=== PATIENT | female | born 1955 | race Caucasian/White ===

== ENCOUNTER 2020-02-06 08:17 | Outpatient (CLI) | payer BC, SELFPAY ==
--- NOTE | ~2020-02-06 | MM_ITS ---
EXAMINATION: MM scrn unique implant BI w robe HISTORY: Screening mammogram TECHNIQUE: Craniocaudal and mediolateral oblique 3-D tomosynthesis images with implant displacement a nd synthetic 2-D images were generated. Craniocaudal and mediolateral oblique views of the breasts wi thout implant displacement were obtained using full field digital mammography. CAD analysis was submi tted and interpreted. COMPARISON: 09/30/2018, 09/28/2017, 09/15/2016 BREAST PARENCHYMAL COMPOSITION: The breasts are almost entirely fatty. FINDINGS: Scattered benign-appearing calcifications are present. There is no evidence of suspicious m ass, calcification, or architectural distortion to suggest malignancy in either breast. There has bee n no suspicious interval change. IMPRESSION: 1. No mammographic evidence of malignancy. 2. Recommend routine screening mammography in one year. BI-RADS Category 2: Benign finding(s). Reviewed, dictated and finalized at location A.
== END 2020-02-06 08:18 | disposition home or self-care (01) ==
LOC: ANHIMG 08:20
PROVIDERS: PCP Family Medicine; Visit Provider Student in an Organized Health Care Education/Training Program
DX: Z12.31 Encounter for screening mammogram for malignant neoplasm of breast (principal)
CPT/HCPCS: 77063; 77067

== ENCOUNTER 2021-02-18 09:45 | Outpatient (CLI) | payer MEDICARE, SELFPAY ==
--- NOTE | ~2021-02-18 | DEXA_ITS ---
Bone Density Report Name: Angelica Arevalo Age: 65 Sex: Female Ethnicity: White Date of : 1955 Indication: postmenopausal; parental hip fracture; height loss; Referring Provider: Lucy Mora Study: Bone densitometry was performed. Exam Date: February 18, 2021 Accession number: [id number] Bone Density: Region BMD T-score Z-score Classification AP Spine (L1-L4) 0.945 -0.9 0.9 Normal Femoral Neck (Left) 0.786 -0.6 1.0 Normal Total Hip (Left) 0.904 -0.3 0.9 Normal Total Hip Bilateral Avg 0.936 -0.1 1.2 Normal Femoral Neck (Right) 0.786 -0.6 1.0 Normal Total Hip (Right) 0.967 0.2 1.5 Normal World Health Organization criteria for BMD impression classify patients as: Normal (T-score at or above -1.0), Osteopenia (T-score between -1.0 and -2.5), or Osteoporosis (T-score at or below -2.5). 10-year Fracture Risk: FRAX not reported because: All T-scores for Spine Total, Hip Total, Femoral Neck at or above -1.0 Previous Exams: Region Exam Age BMD T-score BMD Change BMD Change Date g/cm2 vs Baseline vs Previous AP Spine(L1-L4) 02/18/2021 65 0.945 -0.9 0.013(1.4%) 0.013(1.4%) 09/28/2017 62 0.932 -1.0 Total Hip(Left) 02/18/2021 65 0.904 -0.3 -0.078(-7.9%)* -0.078(-7.9%)* 09/28/2017 62 0.982 0.3 Total Hip(Right) 02/18/2021 65 0.967 0.2 -0.055(-5.4%)* -0.055(-5.4%)* 09/28/2017 62 1.022 0.7 *Denotes significance at 95% confidence level, LSC for AP Spine = 0.022 g/cm2, LSC for Total Hip = 0.027 g/cm2 Clinical Information Provided by Patient: Parent has had a hip fracture Has used the following medications: Fosamax (i.e. alendronate), Calcium Patient maximum height was 65 Menopause Age: 60 Drinks caffeinated beverages Onset of menses at age 13 Number of children 2 Impression: The patient has normal bone mass. The patient has risk factors, including: parental hip fracture. The BMD for the Total Hip(Left) decreased, changing by -7.9% since the last DXA exam. The BMD for the Total Hip(Right) decreased, changing by -5.4% since the last DXA exam. Discussion: BONE DENSITY IS ABOVE THE MINIMUM DESIRABLE LEVEL AT ALL SKELETAL SITES TESTED. This patient?s bone mineral density is above the minimum desirable level (T-score -1.0 or better) at all sites measured. The patient should follow a healthful lifestyle (good nutrition with adequate calcium and vitamin D, and appropriate weight-bearing exercise). Follow-Up: Consider repeating
--- NOTE | ~2021-02-18 | MM_ITS ---
EXAMINATION: MM scrn unique implant BI w robe HISTORY: Screening mammogram TECHNIQUE: Craniocaudal and mediolateral oblique 3-D tomosynthesis images with implant displacement a nd synthetic 2-D images were generated. Craniocaudal and mediolateral oblique views of the breasts wi thout implant displacement were obtained using full field digital mammography. CAD analysis was submi tted and interpreted. COMPARISON: 02/06/2020, 09/30/2018, 09/28/2017 bilateral implant digital screening mammogram examination s BREAST PARENCHYMAL COMPOSITION: There are scattered areas of fibroglandular density. FINDINGS: Status post bilateral augmentation mammoplasty. There is no evidence of suspicious mass, ca lcification, or architectural distortion to suggest malignancy in either breast. There has been no wilkins spicious interval change. IMPRESSION: 1. No mammographic evidence of malignancy. 2. Recommend routine screening mammography in one year. BI-RADS Category 1: Negative Reviewed, dictated and finalized at location A.
== END 2021-02-18 09:46 | disposition home or self-care (01) ==
LOC: ANHIMG 09:47
PROVIDERS: PCP Family Medicine; Visit Provider Student in an Organized Health Care Education/Training Program
DX: Z12.31 Encounter for screening mammogram for malignant neoplasm of breast (principal); Z78.0 Asymptomatic menopausal state
CPT/HCPCS: 77063; 77067; 77080

== ENCOUNTER 2022-04-19 10:49 | Outpatient (CLI) | payer MEDICARE, SELFPAY ==
--- NOTE | ~2022-04-19 | MM_ITS ---
EXAMINATION: MM scrn unique implant BI w robe HISTORY: Screening TECHNIQUE: Craniocaudal and mediolateral oblique 3-D tomosynthesis images with implant displacement a nd synthetic 2-D images were generated. Craniocaudal and mediolateral oblique views of the breasts wi thout implant displacement were obtained using full field digital mammography. CAD analysis was submi tted and interpreted. COMPARISON: Comparison to multiple prior studies sequentially, with oldest reviewed study dated 06/2016. BREAST PARENCHYMAL COMPOSITION: There are scattered areas of fibroglandular density. FINDINGS: There is no evidence of suspicious mass, calcification, or architectural distortion to sugg est malignancy in either breast. There has been no suspicious interval change. IMPRESSION: 1. No mammographic evidence of malignancy. 2. Recommend routine screening mammography in one year. BI-RADS Category 1: Negative Reviewed, dictated and finalized at location A.
== END 2022-04-19 10:50 | disposition home or self-care (01) ==
PROVIDERS: PCP Family Medicine; Visit Provider Student in an Organized Health Care Education/Training Program
DX: Z12.31 Encounter for screening mammogram for malignant neoplasm of breast (principal)
CPT/HCPCS: 77063; 77067

== ENCOUNTER 2023-07-25 08:13 | Outpatient (CLI) | payer MEDICARE, SELFPAY ==
--- NOTE | ~2023-07-25 | MM_ITS ---
EXAMINATION: MM scrn unique implant BI w robe HISTORY: Screening mammogram TECHNIQUE: Craniocaudal and mediolateral oblique 3-D tomosynthesis images with implant displacement a nd synthetic 2-D images were generated. Craniocaudal and mediolateral oblique views of the breasts wi thout implant displacement were obtained using full field digital mammography. CAD analysis was submi tted and interpreted. COMPARISON: 04/19/2022, 02/2021, 02/06/2020 bilateral implant screening mammogram examinations BREAST PARENCHYMAL COMPOSITION: There are scattered areas of fibroglandular density. FINDINGS: Status post bilateral augmentation mammoplasty. There is no evidence of suspicious mass, ca lcification, or architectural distortion to suggest malignancy in either breast. There has been no wilkins spicious interval change. IMPRESSION: 1. No mammographic evidence of malignancy. 2. Recommend routine screening mammography in one year. BI-RADS Category 1: Negative Reviewed, dictated and finalized at location A. IN ARCHITECT
== END 2023-07-25 08:14 | disposition home or self-care (01) ==
PROVIDERS: PCP Family Medicine; Visit Provider Obstetrics & Gynecology
DX: Z12.31 Encounter for screening mammogram for malignant neoplasm of breast (principal)
CPT/HCPCS: 77063; 77067

== ENCOUNTER 2024-08-28 12:50 | Outpatient (CLI) | payer MEDICARE, SELFPAY ==
--- NOTE | ~2024-08-28 | DEXA_ITS ---
Bone Density Report Name: DEENA REYES Age: 69 Sex: Female Ethnicity: White Date of : 1955 Indication: postmenopausal; screening for osteoporosis; parental hip fracture; Referring Provider: COURTNEY CORTES Study: Bone densitometry was performed. Exam Date: August 28, 2024 Accession number: [id number] Bone Density: Region BMD T-score Z-score Classification AP Spine(L1-L4) 0.987 -0.5 1.5 Normal Femoral Neck (Left) 0.764 -0.8 1.0 Normal Total Hip (Left) 0.881 -0.5 0.9 Normal Femoral Neck (Right) 0.824 -0.2 1.5 Normal Total Hip (Right) 0.930 -0.1 1.4 Normal Total Hip Mean 0.905 -0.3 1.2 Normal World Health Organization criteria for BMD impression classify patients as: Normal (T-score at or above -1.0), Osteopenia (T-score between -1.0 and -2.5), or Osteoporosis (T-score at or below -2.5). 10-year Fracture Risk: FRAX not reported because: All T-scores for Spine Total, Hip Total, Femoral Neck at or above -1.0 Previous Exams: Region Exam Age BMD T-score BMD Change BMD Change Date g/cm2 vs Baseline vs Previous AP Spine (L1-L4) 08/28/2024 69 0.987 -0.5 0.055 (5.9%)# 0.042 (4.5%)# 02/18/2021 65 0.945 -0.9 0.013 (1.4%) 0.013 (1.4%) 09/28/2017 62 0.932 -1.0 Total Hip(Left) 08/28/2024 69 0.881 -0.5 -0.101 (-10.3% -0.024 (-2.6%) 02/18/2021 65 0.904 -0.3 -0.078 (-7.9%) -0.078 (-7.9%) 09/28/2017 62 0.982 0.3 Total Hip(Right) 08/28/2024 69 0.930 -0.1 -0.092 (-9.0%) -0.036 (-3.8%) 02/18/2021 65 0.967 0.2 -0.055 (-5.4%) -0.055 (-5.4%) 09/28/2017 62 1.022 0.7 *Denotes significance at 95% confidence level, LSC for AP Spine = 0.022 g/cm2, LSC for Total Hip = 0.027 g/cm2 # Denotes dissimilar scan types or analysis methods Clinical Information Provided by Patient: Parent has had a hip fracture Has used the following medications: Vitamin D, Calcium Patient maximum height was 65 Menopause Age: 60 Drinks caffeinated beverages Onset of menses at age 13 Number of children 2 Impression: The patient has normal bone mass. The patient has risk factors, including: parental hip fracture. No significant bone loss was observed. Discussion: BONE DENSITY IS ABOVE THE MINIMUM DESIRABLE LEVEL AT ALL SKELETAL SITES TESTED. This patient?s bone mineral density is above the minimum desirable level (T-score -1.0 or better) at all sites measured. The patient should follow a healthful lifestyle (good nutrition with adequate calcium and vitamin D, and appropriate weight-bearing exercise). Follow-Up: Consider repeating this study in 5 years or sooner if there is some new clinical indication. Reported by: YAZMIN on 08/28/2024 1:20:00 PM. Reviewed, dictated and finalized at location A.
== END 2024-08-28 12:51 | disposition home or self-care (01) ==
LOC: ANHIMG 12:52
PROVIDERS: PCP Family Medicine; Visit Provider Obstetrics & Gynecology
DX: Z13.820 Encounter for screening for osteoporosis (principal); Z78.0 Asymptomatic menopausal state
CPT/HCPCS: 77080

== ENCOUNTER 2024-09-14 14:53 | Outpatient (CLI) | payer MEDICARE, SELFPAY ==
--- NOTE | ~2024-09-14 | MM_ITS ---
EXAMINATION: MM scrn unique implant BI w robe HISTORY: Screening mammogram TECHNIQUE: Craniocaudal and mediolateral oblique 3-D tomosynthesis images with implant displacement a nd synthetic 2-D images were generated. Craniocaudal and mediolateral oblique views of the breasts wi thout implant displacement were obtained using full field digital mammography. CAD analysis was submi tted and interpreted. COMPARISON: 07/25/2023, 04/19/2022, 02/18/2021, 02/06/2020 BREAST PARENCHYMAL COMPOSITION: The breasts are heterogeneously dense, which may obscure small masses . FINDINGS: There is no evidence of suspicious mass, calcification, or architectural distortion to sugg est malignancy in either breast. There has been no suspicious interval change. IMPRESSION: No mammographic evidence of malignancy. Recommend routine screening mammography in one year. BI-RADS Category 1: Negative Reviewed, dictated and finalized at [facility].
== END 2024-09-14 14:54 | disposition home or self-care (01) ==
LOC: ANHIMG 14:55
PROVIDERS: PCP Family Medicine; Visit Provider Obstetrics & Gynecology
DX: Z12.31 Encounter for screening mammogram for malignant neoplasm of breast (principal)
CPT/HCPCS: 77063; 77067

== ENCOUNTER 2024-09-25 01:07 | Day surgery (SDC) | payer MEDICARE, SELFPAY ==
[2024-09-17 09:53] VITALS: BMI 24.8
[2024-09-25 07:44] VITALS: BP 131/71; PULSE 95; RESP 18; TEMP 35.7; O2SAT 100
[2024-09-25] MEDS: LACTATED RINGERS 1,000 ML 150 ML IV CONT (07:52)
[2024-09-25 07:56] LABS: Glucose Point of Care 94 mg/dl (65-105)
--- NOTE | 2024-09-25 08:38 | P.HP_ITS ---
History of Present Illness History of Present Illness Consent: Risks, benefits, and alternatives have been discussed and questions answered. Patient agrees to proceed with procedure. Chief complaint: personal hx of colon polyps Narrative: Angelica Arevalo is a 69 year old female with colon polyp in 2019 Review of Systems Review of Systems: All systems reviewed & are unremarkable except as noted in HPI and below PMFSH Past Medical History Medical History BMI 25.0-25.9,adult Respiratory abnormalities Colon polyp Encounter for screening colonoscopy Essential (primary) hypertension Hyperlipemia Hypothyroidism Stage III chronic kidney disease Type 2 diabetes mellitus with hyperglycemia Surgical History Surgical History H/O colonoscopy with polypectomy 06/30/19 History of dilation and curettage History of breast implant History of tubal ligation Family History Family History Grandparent Family history of lung cancer Father Family history of malignant neoplasm of brain, Onset Age: 64 Cerebrovascular accident Family history of type 2 diabetes mellitus Diabetes mellitus Sibling Family history of type 2 diabetes mellitus Diabetes mellitus Mother Mitral valve prolapse Hypertension Dementia Sibling Diabetes mellitus AAA (abdominal aortic aneurysm) Other Family history of coronary artery disease Family history of malignant neoplasm of breast Family history of malignant neoplasm of breast in first degree relative Social History Social History Smoking status: Former smoker Tobacco type: cigarettes Second hand tobacco smoke exposure: No Smoking end date: 06/17/91 Alcohol intake: current Drinks per week: 2 Alcohol use details: occasional Substance use: never Substance use type: does not use Do You Feel Safe in your Home?: Yes Lack of Transportation: No Lack of Food: Never True Current Housing: I Have Housing Concerned About Future Housing: No Difficulty Paying Gas/Electric Bills: No Difficulty Paying for Meds: No Currently Unemployed: No Education: Trade/Vocational Certificate Difficulty w/ Childcare or Family Care: No Living arrangements: with family Occupation/Education: retired 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 Gender identity (if verbalized by the patient): Female Spiritual care concerns: No Meds Home Medications and Allergies Home Medications ?Medication ?Instructions ?Recorded ?Confirmed ?Type vitamins A,C,M-ywnh-vdmahs 2,148 2 tablet PO BID 03/11/23 09/25/24 History mcg-113 mg-45 mg-17.4 mg tablet (PreserVision AREDS) calcium carbonate (Calcium 600) 600 mg PO DAILY 07/29/23 09/25/24 History cholecalciferol (vitamin D3) 50 50 mcg PO DAILY 07/29/23 09/25/24 History mcg (2,000 unit) capsule glimepiride 4 mg tablet 2 mg (1/2 x 4 mg) PO BID #90 tabs 11/25/23 09/25/24 Rx levothyroxine 50 mcg tablet 50 mcg PO DAILY #90 tabs 11/25/23 09/25/24 Rx (Levoxyl) metformin 500 mg tablet,extended See Rx Instructions .Route 11/25/23 09/25/24 Rx release 24 hr .COMPLEX #360 tabs phwknlkg-abs-woizp ac 400 1 tablet PO DAILY 04/14/24 09/25/24 History mcg-calcium carb 500 mg-vit K1 20 mcg tablet (Women's 50 Plus Multivitamin) dapagliflozin propanediol 10 mg 10 mg PO DAILY #90 tabs 06/15/24 09/25/24 Rx tablet (Farxiga) lisinopril 10 mg tablet 10 mg PO DAILY #90 tabs 07/05/24 09/25/24 Rx semaglutide 1 mg/dose (4 mg/3 mL) 1 mg (0.75 mL) subcut WEEKLY #3 mL 07/27/24 09/25/24 Rx subcutaneous pen injector (Ozempic) lorazepam 0.5 mg tablet (Ativan) 0.5 mg PO QHS Menopausal Symptoms 09/03/24 09/17/24 Rx #90 tabs atorvastatin 10 mg tablet 10 mg PO DAILY #100 tabs 09/14/24 09/25/24 Rx Allergies Allergy/AdvReac Type Severity Reaction Status Date / Time codeine Allergy Unknown Rash Verified 09/25/24 07:42 Vital Signs Vital Signs - 24 hr 09/25/24 07:44 Temperature 96.3 F L Pulse Rate 95 Respiratory Rate 18 Blood Pressure 131/71 Pulse Oximetry 100 Oxygen Delivery Room Air Exam Const: General: comfortable and no acute distress HENMT: Face/Nose/Sinus: Normal nares present Eyes: General: appearance normal, both eyes and all related structures Neck: Neck: no JVD Resp: Auscultation: clear to auscultation bilaterally Cardio: Rate: regular rate Rhythm: regular rhythm GI: Inspection: non-distended GI Palp: Yes Soft to palpation Skin: General skin exam: normal color Neuro: General: gait normal Speech: normal speech Extrem: General: normal to inspection Psych: Mental Status: mental status grossly normal Assessment and Plan Assessment and plan (1) Colon polyp: Code(s): K63.5 - Polyp of colon Status: Acute Assessment and Plan: colonoscopy
--- NOTE | 2024-09-25 08:38 | WPDANESEPPF ---
Anes - Initial Pre Proc Eval Procedure: Operation Date: 09/25/24 09:00 Proposed Procedures p Colonoscopy - Sigifredo Chairez MD Date/Time: 09/25/24 08:38 Surgeon: Sigifredo Chairez MD Pre Op Diagnosis: personal hx of colon polyps Patient Data Age: 69 Gender: F Height: 1.63 m Weight: 64.6 kg Last Vital Signs Temp 96.3 F L 09/25/24 07:44 Pulse 95 09/25/24 07:44 Resp 18 09/25/24 07:44 BP 131/71 09/25/24 07:44 Pulse Ox 100 09/25/24 07:44 O2 Del Method Room Air 09/25/24 07:44 Allergies Allergy/AdvReac Type Severity Reaction Status Date / Time codeine Allergy Unknown Rash Verified 09/25/24 07:42 Home Medications ?Medication ?Instructions ?Recorded ?Confirmed ?Type vitamins A,C,C-phyo-ifeonx 2,148 2 tablet PO BID 03/11/23 09/25/24 History mcg-113 mg-45 mg-17.4 mg tablet (PreserVision AREDS) calcium carbonate (Calcium 600) 600 mg PO DAILY 07/29/23 09/25/24 History cholecalciferol (vitamin D3) 50 50 mcg PO DAILY 07/29/23 09/25/24 History mcg (2,000 unit) capsule glimepiride 4 mg tablet 2 mg (1/2 x 4 mg) PO BID #90 tabs 11/25/23 09/25/24 Rx levothyroxine 50 mcg tablet 50 mcg PO DAILY #90 tabs 11/25/23 09/25/24 Rx (Levoxyl) metformin 500 mg tablet,extended See Rx Instructions .Route 11/25/23 09/25/24 Rx release 24 hr .COMPLEX #360 tabs akzznahf-exb-rjyyd ac 400 1 tablet PO DAILY 04/14/24 09/25/24 History mcg-calcium carb 500 mg-vit K1 20 mcg tablet (Women's 50 Plus Multivitamin) dapagliflozin propanediol 10 mg 10 mg PO DAILY #90 tabs 06/15/24 09/25/24 Rx tablet (Farxiga) lisinopril 10 mg tablet 10 mg PO DAILY #90 tabs 07/05/24 09/25/24 Rx semaglutide 1 mg/dose (4 mg/3 mL) 1 mg (0.75 mL) subcut WEEKLY #3 mL 07/27/24 09/25/24 Rx subcutaneous pen injector (Ozempic) lorazepam 0.5 mg tablet (Ativan) 0.5 mg PO QHS Menopausal Symptoms 09/03/24 09/17/24 Rx #90 tabs atorvastatin 10 mg tablet 10 mg PO DAILY #100 tabs 09/14/24 09/25/24 Rx Laboratory Tests 09/25/24 07:51 POC Capillary Glucose 94 mg/dl (65-105) Patient hx anesthesia problems: none Family hx anesthesia problems: none Results Review: All pre-operative results and documents have been reviewed as part of the pre-operative evaluation. [facility] Past Medical History Medical History BMI 25.0-25.9,adult Respiratory abnormalities Colon polyp Encounter for screening colonoscopy Essential (primary) hypertension Hyperlipemia Hypothyroidism Stage III chronic kidney disease Type 2 diabetes mellitus with hyperglycemia Surgical History Surgical History H/O colonoscopy with polypectomy 06/30/19 History of dilation and curettage History of breast implant History of tubal ligation Family History Family History Grandparent Family history of lung cancer Father Family history of malignant neoplasm of brain, Onset Age: 64 Cerebrovascular accident Family history of type 2 diabetes mellitus Diabetes mellitus Sibling Family history of type 2 diabetes mellitus Diabetes mellitus Mother Mitral valve prolapse Hypertension Dementia Sibling Diabetes mellitus AAA (abdominal aortic aneurysm) Other Family history of coronary artery disease Family history of malignant neoplasm of breast Family history of malignant neoplasm of breast in first degree relative Social History Social History Smoking status: Former smoker Tobacco type: cigarettes Second hand tobacco smoke exposure: No Smoking end date: 06/17/91 Alcohol intake: current Drinks per week: 2 Alcohol use details: occasional Substance use: never Substance use type: does not use Do You Feel Safe in your Home?: Yes Lack of Transportation: No Lack of Food: Never True Current Housing: I Have Housing Concerned About Future Housing: No Difficulty Paying Gas/Electric Bills: No Difficulty Paying for Meds: No Currently Unemployed: No Education: Trade/Vocational Certificate Difficulty w/ Childcare or Family Care: No Living arrangements: with family Occupation/Education: retired Additional occupation/education comments: [employer] Gender identity (if verbalized by the patient): Female Spiritual care concerns: No Anes - Eval Final PreProcedure Day of Procedure 09/25/24 08:38 Patient weight: normal Heart: regular rate and rhythm Lungs: clear to auscultation Airway: Mallampati scale class II Neurological: alert and oriented Last oral intake: >/= 8 hours ASA classification: III Emergent: no Anesthetic plan: proceed Anesthesia type and monitoring: general GIVS and standard monitoring Results Review: All pre-operative results and documents have been reviewed as part of the pre-operative evaluation. Informed Consent: The patient's anesthetic plan and its attendant risks and benefits were discussed with the patient/family/POA. Questions were solicited and answers provided to the satisfaction of the patient/family/POA.
[2024-09-25 08:56] VITALS: BP 111/65; PULSE 80; RESP 18; O2SAT 99
[2024-09-25 09:06] VITALS: BP 109/61; PULSE 75; RESP 18; O2SAT 99
[2024-09-25 09:16] VITALS: BP 106/58; PULSE 70; RESP 18; O2SAT 99
== END 2024-09-25 09:22 | disposition home or self-care (01) ==
PROVIDERS: PCP Family Medicine; Referring Provider Internal Medicine Gastroenterology; Visit Provider Internal Medicine Gastroenterology
PROC: 0DJD8ZZ Inspection of Lower Intestinal Tract, Via Natural or Artificial Opening Endoscopic (ICD-10-PCS; CPT 45378; principal; 2024-09-25 09:00)
DX: Z12.11 Encounter for screening for malignant neoplasm of colon (principal); D12.0 Benign neoplasm of cecum; D12.3 Benign neoplasm of transverse colon; K64.8 Other hemorrhoids; E78.5 Hyperlipidemia, unspecified; E03.9 Hypothyroidism, unspecified; E11.65 Type 2 diabetes mellitus with hyperglycemia; E11.22 Type 2 diabetes mellitus with diabetic chronic kidney disease; I12.9 Hypertensive chronic kidney disease with stage 1 through stage 4 chronic kidney disease, or unspecified chronic kidney disease; N18.30 Chronic kidney disease, stage 3 unspecified; R06.9 Unspecified abnormalities of breathing; Z79.84 Long term (current) use of oral hypoglycemic drugs; Z79.85 Long-term (current) use of injectable non-insulin antidiabetic drugs; Z98.890 Other specified postprocedural states; Z98.51 Tubal ligation status; Z87.891 Personal history of nicotine dependence; Z80.3 Family history of malignant neoplasm of breast; Z80.8 Family history of malignant neoplasm of other organs or systems; Z80.1 Family history of malignant neoplasm of trachea, bronchus and lung; Z82.49 Family history of ischemic heart disease and other diseases of the circulatory system
CPT/HCPCS: 45385; 82948; 88305; J2704; J7120